=== PATIENT | female | born 1980 | race African-American/Black ===

== ENCOUNTER 2017-03-01 02:29 | Emergency (ER) | payer OTHER ==
[~2017-03-01] VITALS: Ht 165.1 cm; Wt 123.8 kg
[~2017-03-01 02:29] MED LIST: NORCO 5-325 TA1 EACH PO
[2017-03-01 02:55] LABS: URINE BILIRUBIN NEGATIVE (Negative); URINE BLOOD NEGATIVE (Negative); URINE COLOR YELLOW; URINE GLUCOSE-RANDOM* NEGATIVE (Negative); URINE KETONES TRACE (Negative); URINE LEUKOCYTES-REFLEX NEGATIVE (Negative); URINE PROTEIN (DIPSTICK) NEGATIVE (Negative); URINE UROBILINOGEN 0.2 E.U./dl (0.2-1.0)
[2017-03-01 03:27] LABS: BASOPHILS 0.7 % (0.0-2.0); EOSINOPHILS 1.7 % (0.0-3.0); HEMOGLOBIN 11.6 gm/dL (12.0-15.0); LYMPHOCYTES 31.3 % (24.0-44.0); MCH 29.5 pg (26.0-34.0); MCHC 33.2 g/dL (28.0-37.0); MCV 88.8 fL (80.0-100.0); MONOCYTES 7.8 % (1.0-8.0); PLATELET COUNT 279 thou/uL (150-400); POLYS 58.5 % (36.0-66.0); RBC 3.94 mil/uL (4.20-5.00); RDW 13.7 % (10.5-14.5); WBC 8.6 thou/uL (4.0-11.0)
[2017-03-01 03:32] LABS: MANUAL DIFF NO
[2017-03-01 03:46] LABS: CALCIUM 9.2 mg/dL (8.5-10.1); CREATININE 0.6 mg/dL (0.6-1.0); POTASSIUM 3.8 mmol/L (3.5-5.1)
[2017-03-01 03:53] LABS: ALBUMIN 3.6 g/dL (3.4-5.0); TOTAL BILIRUBIN 0.1 mg/dL (<0.1-1.0); TOTAL PROTEIN 6.9 g/dL (6.4-8.2)
[2017-03-01] MEDS ORDERED: NAPROSYN500 MG PO (04:02)
[2017-03-01 04:30] VITALS: BP 141/92
== END 2017-03-01 04:30 | disposition home or self-care (01) ==
LOC: ER 02:29
PROVIDERS: Emergency Medicine
DX: R10.30 Lower abdominal pain, unspecified (principal); Z98.890 Other specified postprocedural states

== ENCOUNTER 2019-07-19 00:06 | Emergency (ER) | payer OTHER ==
[~2019-07-19] VITALS: Ht 165.1 cm; Wt 122.5 kg
[~2019-07-19 00:06] MED LIST changes: +NAPROSYN500 MG PO
[2019-07-19] MEDS ORDERED: LORCET 5-325 M1 EACH PO (00:11)
[2019-07-19] MEDS ORDERED: HYDROCHLOROTHIA25 M2 PO (00:12)
[2019-07-19 01:19] LABS: ANION GAP 12 mmol/L (7-16); BUN 10 mg/dL (7-18); CALCIUM 9.8 mg/dL (8.5-10.1); CHLORIDE 100 mmol/L (98-107); CO2 22 mmol/L (21-32); CREATININE 0.6 mg/dL (0.6-1.0); GLUCOSE 91 mg/dL (74-106); SODIUM 134 mmol/L (136-145)
[2019-07-19 01:23] LABS: ABSOLUTE NEUTROPHILS 10.1 thou/uL (1.4-8.2); BASOPHILS 0.4 % (0.0-2.0); EOSINOPHILS 0.5 % (0.0-3.0); HEMATOCRIT 38.9 % (37.0-47.0); HEMOGLOBIN 12.7 gm/dL (12.0-15.0); LYMPHOCYTES 13.9 % (24.0-44.0); MCH 28.8 pg (26.0-34.0); MCHC 32.6 g/dL (28.0-37.0); MCV 88.4 fL (80.0-100.0); MONOCYTES 4.9 % (1.0-8.0); PLATELET COUNT 340 thou/uL (150-400); POLYS 80.3 % (36.0-66.0); RBC 4.39 mil/uL (4.20-5.00); RDW 13.9 % (10.5-14.5); WBC 12.6 thou/uL (4.0-11.0)
[2019-07-19 01:24] LABS: URINE BILIRUBIN NEGATIVE (Negative); URINE BLOOD NEGATIVE (Negative); URINE CLARITY CLEAR; URINE COLOR YELLOW; URINE GLUCOSE-RANDOM* NEGATIVE (Negative); URINE KETONES 3+ (Negative); URINE LEUKOCYTES-REFLEX NEGATIVE (Negative); URINE NITRITE-REFLEX NEGATIVE (Negative); URINE PROTEIN (DIPSTICK) NEGATIVE (Negative); URINE SPECIFIC GRAVITY >= 1.030 (1.005-1.035); URINE UROBILINOGEN 0.2 E.U./dl (0.2-1.0)
[2019-07-19 01:28] LABS: ALBUMIN 4.2 g/dL (3.4-5.0); LIPASE 74 U/L (73-393); SGOT 27 U/L (15-37); SGPT 22 U/L (30-65); TOTAL BILIRUBIN 0.3 mg/dL (<0.1-1.0); TOTAL PROTEIN 8.6 g/dL (6.4-8.2); TROPONIN-I <0.06 ng/mL (<0.06)
[2019-07-19] MEDS ORDERED: LISINOPRIL-HCT1 EAC1 PO (01:52)
[2019-07-19] MEDS ORDERED: NORCO 5-325 TA1 EAC1 PO (02:12)
[2019-07-19] MEDS ORDERED: ZOFRAN ODT4 MG PO (02:12)
[2019-07-19 02:44] VITALS: BP 136/83
--- NOTE | 2019-07-21 08:30 | EKG ---
[facility] [place] [address] ELECTROCARDIOGRAM REPORT Name: MONTRELL LOONEY Room #: DEP [facility]#: [id number] Admission: 07/19/19 Attend Phys: Discharge: 07/19/19 Date of : 78 Report #: [id number] THIS REPORT FOR: cc: GAGE - Funmilayo family physician/PCP FAM - No family physician/PCP Fer Tracy MD [facility] THIS REPORT FOR: //name// [facility] ED Test Date: 2019-07-19 Test Time: 01:11:34 Pat Name: MONTRELL LOONEY Department: Room: Gender: F [employer] Intern: carmen mazariegos : 1980 Requested By: David Guevara Order Number: [id number] MD: Fer Tracy Measurements Intervals [place] Rate: 104 P: 41 MS: 167 QRS: -2 QRSD: 90 T: 14 QT: 329 QTc: 433 Interpretive Statements Sinus tachycardia Poor R wave progression No previous ECG available for comparison Electronically Signed On 07-21-2019 8:28:57 [employer] by Fer Tracy [email or web address] <ELECTRONICALLY SIGNED> By: Fer Tracy MD, [facility] 07/21/19 0828 0111 0 Fer Tracy MD, FAC /EPI
== END 2019-07-19 03:03 | disposition home or self-care (01) ==
LOC: ER 00:06
PROVIDERS: Emergency Medicine
DX: K80.50 Calculus of bile duct without cholangitis or cholecystitis without obstruction (principal); K80.80 Other cholelithiasis without obstruction; R11.2 Nausea with vomiting, unspecified